=== PATIENT | female | born 1940 | race Caucasian/White ===

== ENCOUNTER → 2020-01-28 | Day surgery (SDC) | payer MEDICARE, OTHER ==
[~2020-01-28] MED LIST: Meperidine PF 25 MG/ML SDV ONE; Midazolam 1 MG/ML 2 ML SDV ONE
[2020-01-28] MEDS: Lactated Ringers 1,000 ML IV SCH (09:00)
[2020-01-28] MEDS: Benzocaine 20% Topical Spray UD MUCMEM ONE (09:14)
[2020-01-28] MEDS: Meperidine PF 25 MG/ML SDV IV ONE (09:18)
[2020-01-28] MEDS: Midazolam 1 MG/ML 2 ML SDV IV ONE (09:18)
[2020-01-28 10:16] VITALS: BP 120/67; PULSE 65
--- NOTE | 2020-01-28 12:30 | OR ---
DATE OF OPERATION: 01/28/2020 PREOPERATIVE DIAGNOSIS: EPIGASTRIC PAIN. POSTOPERATIVE DIAGNOSIS: PEPTIC ULCER DISEASE. SURGEON: Harman Ward MD PROCEDURE: DIAGNOSTIC EGD WITH BIOPSIES X3, LYNDSEY. ANESTHESIA: Conscious sedation with continuous O2 saturation monitoring and nurse assist. Oxygen saturations maintained above 90% for the whole procedure. COMPLICATIONS: None. SPECIMEN: 1. Antral LYNDSEY. 2. Antral biopsy x3. FINDINGS: 1. Full-length diagnostic EGD. 2. Peptic ulcer disease with multiple distal antral ulcers with no active bleeding. 3. Chronic gastritis in antrum. RECOMMENDATIONS: The patient will continue on proton pump therapy. Treatment of H. pylori pending report. INDICATIONS: The patient has been having some ongoing issues with epigastric pain. We put her on proton pump therapy empirically and she was failing to improve. We elected to proceed with endoscopy. DESCRIPTION OF PROCEDURE: The patient was prepped and draped, placed in the left lateral decubitus position. A lubricated Olympus gastroscope was inserted and with ease advanced to the cricopharyngeus area. The patient intubated in the esophagus. Esophageal lining was benign in its entire course. The Z-line was crisp and sharp at 39 cm. No spontaneous reflux seen. The Z- line was crisp and sharp and there was no distal esophagitis, ulceration, or Elizalde's changes. The scope was advanced into the stomach, through the pylorus, and into the second portion of the duodenum. This and the duodenal bulb were benign. The scope was brought back into the stomach and retroflexed. The upper fundus and cardia were unremarkable. The patient had significant chronic gastritis of the antrum. In the peripyloric region and in the distal antrum, the patient had multiple erosions and ulcerations. Trench Trimmer Fine biopsies of 3 of these were done along with a CLOtest from an unaffected portion of the antrum. Air was then suctioned from the stomach and the scope removed without complication. EKTA/AN /[id number]
== END ==
LOC: CC.SDS 08:24
PROVIDERS: ATTEND Family Medicine
DX: K29.50 Unspecified chronic gastritis without bleeding (principal); K31.89 Other diseases of stomach and duodenum; K27.9 Peptic ulcer, site unspecified, unspecified as acute or chronic, without hemorrhage or perforation; K44.9 Diaphragmatic hernia without obstruction or gangrene; E78.5 Hyperlipidemia, unspecified; I10 Essential (primary) hypertension; E03.9 Hypothyroidism, unspecified; Z88.8 Allergy status to other drugs, medicaments and biological substances; Z91.012 Allergy to eggs; Z79.82 Long term (current) use of aspirin; Z79.899 Other long term (current) drug therapy; Z79.890 Hormone replacement therapy; Z86.73 Personal history of transient ischemic attack (TIA), and cerebral infarction without residual deficits; Z98.890 Other specified postprocedural states; Z87.891 Personal history of nicotine dependence
CPT/HCPCS: 87081; 88305; A9270-GY; J2175; J2250; J7120

== ENCOUNTER 2021-02-07 09:42 | Emergency (ER) | payer MEDICARE, OTHER ==
[2021-02-07 09:55] VITALS: BP 158/62; PULSE 74
--- NOTE | 2021-02-07 10:40 | EDM.PDOC ---
ED HPI GENERAL MEDICAL PROBLEM - General Chief Complaint: General Stated Complaint: CP Time Seen by Provider: 02/07/21 09:51 Source of Information: Reports: Patient History Limitations: Reports: No Limitations - History of Present Illness INITIAL COMMENTS - FREE TEXT/NARRATIVE: Mrs. Gallegos is an 80-year-old female that presented to the emergency department from the clinic for evaluation of chest pain and shortness of breath. Upon arrival in ER patient denies any chest pain but has had shortness of breath since last night. States that she just cannot catch her breath. Also reports that she has had some pain in her neck that radiated up to her head described as a congested feeling. Reports that she has had some breathing issues over the last several months and states that she snores. Reports generally being fairly healthy. As mentioned she denies any sort of chest pain, nausea, vomiting, diaphoresis. Has had swelling in her lower extremities but states that is im proved this morning. Has had the Covid vaccine as well as the influenza vaccine. Onset: Gradual Duration: Day(s): (1) Location: Reports: Face, Neck Quality: Reports: Ache Severity: Mild Improves with: Reports: None Worsens with: Reports: None Chest Pain Score (Numeric/FACES): 0 - Related Data Allergies Allergy/AdvReac Type Severity Reaction Status Date / Time amlodipine besylate Allergy Unknown Edema Verified 02/07/21 09:55 [From [facility]] Eggs Allergy Airway Uncoded 02/07/21 09:55 Tightness Home Meds: Home Meds Aspirin [Halfprin] 81 mg PO DAILY 09/16/13 [History] Furosemide 40 mg PO DAILY 09/16/13 [History] Levothyroxine Sodium [Synthroid] 75 mcg PO DAILY 09/16/13 [History] Metoprolol Succinate [Toprol XL 50mg] 50 mg PO DAILY 09/16/13 [History] Quinapril [Accupril] 40 mg PO DAILY 09/16/13 [History] Rosuvastatin Calcium 20 mg PO DAILY 01/25/20 [History] Nitrofurantoin Monohyd/M-Cryst [Macrobid 100 mg Capsule] 100 mg PO BID #14 capsule 02/07/21 [Rx] Social & Family History - Tobacco Use Tobacco Use Status *Q: Never Tobacco User ED ROS GENERAL - Review of Systems Review Of Systems: See Below Constitutional: Denies: Fever, Chills Respiratory: Reports: Shortness of Breath. Denies: Wheezing, Cough Cardiovascular: Reports: Dyspnea on Exertion, Edema. Denies: Chest Pain Endocrine: Reports: Fatigue, Other (weakness) GI/Abdominal: Denies: Abdominal Pain : Reports: Dysuria Musculoskeletal: Reports: Muscle Stiffness Skin: Denies: Cyanosis, Diaphoresis Neurological: Reports: Headache. Denies: Confusion, Dizziness, Trouble Speaking Psychiatric: Reports: No Symptoms Hematologic/Lymphatic: Reports: No Symptoms Immunologic: Reports: No Symptoms ED EXAM, GENERAL - Physical Exam Exam: See Below Exam Limited By: No Limitations General Appearance: Alert, WD/WN, Mild Distress Eye Exam: Bilateral Eye: PERRL Ears: Normal External Exam, Hearing Grossly Normal Nose: Normal Inspection, Normal Mucosa, No Blood Throat/Mouth: Normal Inspection, Normal Lips, Normal Voice, No Airway Compromise Head: Atraumatic, Normocephalic Neck: Normal Inspection, Supple, Non-Tender, Full Range of Motion Respiratory/Chest: No Respiratory Distress, Lungs Clear. No: Crackles, Rales, Rhonchi, Pleural Rub Cardiovascular: Normal Peripheral Pulses, Regular Rate, Rhythm, No Gallop, No Murmur, No Rub GI/Abdominal: Normal Bowel Sounds, Soft, Non-Tender (Female) Exam: Deferred Rectal (Female) Exam: Deferred Back Exam: Normal Inspection. No: CVA Tenderness (L), CVA Tenderness (R) Extremities: Normal Range of Motion, Pedal Edema (trace lower extremity edema) Neurological: Alert, Oriented, Normal Cognition, Normal Gait. No: Confused, Disoriented, Slow to Respond Psychiatric: Normal Affect, Normal Mood Skin Exam: Warm, Dry, Intact Lymphatic: No Adenopathy Course - Vital Signs Last Recorded V/S: Last Vital Signs Temp 96.7 F L 02/07/21 09:51 Pulse 74 02/07/21 09:51 Resp 16 02/07/21 09:51 BP 158/62 H 02/07/21 09:51 Pulse Ox 94 L 02/07/21 09:51 - Orders/Labs/Meds Orders: Active Orders 24 hr Category Date Time Status Chest 2V [CR] Stat Exams 02/07/21 10:29 Taken Chest PE [Ang Chest] [CT] Stat Exams 02/07/21 10:58 Taken CULTURE URINE [RM] Stat Lab 02/07/21 12:31 Received Sodium Chloride 0.9% [Normal Saline] 500 ml Med 02/07/21 11:15 Active IV .BOLUS Medication Orders Sodium Chloride (Normal Saline) 500 mls @ 999 mls/hr IV .BOLUS GABRIELLA Last Admin: 02/07/21 11:49 Dose: 999 mls/hr Documented by: EYAD Labs: Laboratory Tests 02/07/21 02/07/21 02/07/21 Range/Units 10:20 10:20 10:20 WBC 6.8 (4.0-11.0) 10^3/uL RBC 4.57 (4.00-5.50) x10^6/uL Hgb 13.7 (12.0-16.0) g/dL Hct 42.6 (37.0-47.0) % MCV 93.2 (83.0-97.0) fL MCH 30.0 (27.0-32.0) pg MCHC 32.2 (32.0-36.0) g/dL RDW Coeff of [place] 13.6 (11.0-15.0) % Plt Count 183 (150-400) 10^3/uL Immature Gran % (Auto) 0.1 (0.0-4.9) % Neut % (Auto) 59.4 (41-71) % Lymph % (Auto) 27.6 (24-44) % [place] % (Auto) 8.5 (0-10) % Eos % (Auto) 3.2 (0-6) % Baso % (Auto) 1.2 H (0-1) % Neut # (Auto) 4.06 (1.80-8.00) x10^3/uL Lymph # (Auto) 1.89 (0.60-5.00) 10^3/uL [place] # (Auto) 0.58 (0.00-1.50) 10^3/uL Eos # (Auto) 0.22 (0.00-1.50) 10^3/uL Baso # (Auto) 0.08 (0.00-0.50) 10^3/uL Immature Gran # (Auto) 0.01 (0.00-0.49) 10^3/uL D-Dimer, Quantitative 1.39 H (0.00-0.50) Sodium 145 (136-145) mEq/L Potassium 4.2 (3.5-5.0) mEq/L Chloride 109 H (98-106) mEq/L Carbon Dioxide 25 (21-32) mmol/L BUN 15 (7-18) mg/dL Creatinine 1.8 H (0.6-1.0) mg/dL Est Cr Clr Drug Dosing 17.90 mL/min Estimated GFR (MDRD) 27 L (>=60) mL/min Glucose 115 H (75-99) mg/dL Calcium 9.8 (8.4-10.1) mg/dL Total Bilirubin 0.6 (0.0-1.0) mg/dL AST 40 H (15-37) U/L ALT 37 (12-78) U/L Alkaline Phosphatase 58 (46-116) U/L Troponin I High Sens 7.7 (<=51) pg/mL C-Reactive Protein < 0.2 L (0.2-0.8) mg/dL NT-Pro-B Natriuret Pep 243 (0-1000) pg/mL Total Protein 7.5 (6.4-8.2) g/dL Albumin 3.5 (3.4-5.0) g/dL Urine Color (YELLOW) Urine Appearance (CLEAR) Urine pH (4.5-8.0) Ur Specific [place] (1.003-1.020) Urine Protein (NEGATIVE) mg/dL Urine Glucose (UA) (NEGATIVE) mg/dL Urine Ketones (NEGATIVE) mg/dL Urine Occult Blood (NEGATIVE) Urine Nitrite (NEGATIVE) Urine Bilirubin (NEGATIVE) Urine Urobilinogen (0.2-1.0) EU/dL Ur Leukocyte Esterase (NEGATIVE) Urine RBC (0-5) /HPF Urine WBC (0-5) /HPF Ur Squamous Epith Cells (NOT SEEN) /HPF Urine Bacteria (NOT SEEN) /HPF Urinalysis Comment Influenza Type A RNA (NEGATIVE) Influenza Type B RNA (NEGATIVE) SARS-CoV-2 RNA ([place]) (NEGATIVE) 02/07/21 02/07/21 Range/Units 10:20 12:31 WBC (4.0-11.0) 10^3/uL RBC (4.00-5.50) x10^6/uL Hgb (12.0-16.0) g/dL Hct (37.0-47.0) % MCV (83.0-97.0) fL MCH (27.0-32.0) pg MCHC (32.0-36.0) g/dL RDW Coeff of [place] (11.0-15.0) % Plt Count (150-400) 10^3/uL Immature Gran % (Auto) (0.0-4.9) % Neut % (Auto) (41-71) % Lymph % (Auto) (24-44) % [place] % (Auto) (0-10) % Eos % (Auto) (0-6) % Baso % (Auto) (0-1) % Neut # (Auto) (1.80-8.00) x10^3/uL Lymph # (Auto) (0.60-5.00) 10^3/uL [place] # (Auto) (0.00-1.50) 10^3/uL Eos # (Auto) (0.00-1.50) 10^3/uL Baso # (Auto) (0.00-0.50) 10^3/uL Immature Gran # (Auto) (0.00-0.49) 10^3/uL D-Dimer, Quantitative (0.00-0.50) Sodium (136-145) mEq/L Potassium (3.5-5.0) mEq/L Chloride (98-106) mEq/L Carbon Dioxide (21-32) mmol/L BUN (7-18) mg/dL Creatinine (0.6-1.0) mg/dL Est Cr Clr Drug Dosing mL/min Estimated GFR (MDRD) (>=60) mL/min Glucose (75-99) mg/dL Calcium (8.4-10.1) mg/dL Total Bilirubin (0.0-1.0) mg/dL AST (15-37) U/L ALT (12-78) U/L Alkaline Phosphatase (46-116) U/L Troponin I High Sens (<=51) pg/mL C-Reactive Protein (0.2-0.8) mg/dL NT-Pro-B Natriuret Pep (0-1000) pg/mL Total Protein (6.4-8.2) g/dL Albumin (3.4-5.0) g/dL Urine Color Yellow (YELLOW) Urine Appearance Cloudy (CLEAR) Urine pH 7.0 (4.5-8.0) Ur Specific [place] 1.015 (1.003-1.020) Urine Protein 30 H (NEGATIVE) mg/dL Urine Glucose (UA) Negative (NEGATIVE) mg/dL Urine Ketones Negative (NEGATIVE) mg/dL Urine Occult Blood Small H (NEGATIVE) Urine Nitrite Negative (NEGATIVE) Urine Bilirubin Negative (NEGATIVE) Urine Urobilinogen 0.2 (0.2-1.0) EU/dL Ur Leukocyte Esterase Large H (NEGATIVE) Urine RBC 5-10 H (0-5) /HPF Urine WBC >100 H (0-5) /HPF Ur Squamous Epith Cells Moderate H (NOT SEEN) /HPF Urine Bacteria Few H (NOT SEEN) /HPF Urinalysis Comment Influenza Type A RNA Negative (NEGATIVE) Influenza Type B RNA Negative (NEGATIVE) SARS-CoV-2 RNA ([place]) Negative (NEGATIVE) Meds: Medications Generic Name Dose Route Start Last Admin Trade Name Freq PRN Reason Stop Dose Admin Sodium Chloride 500 mls @ 999 mls/hr 02/07/21 11:15 02/07/21 11:49 Normal Saline IV 999 mls/hr .BOLUS GABRIELLA Administration Discontinued Medications Generic Name Dose Route Start Last Admin Trade Name Freq PRN Reason Stop Dose Admin Iopamidol 100 ml 02/07/21 11:06 02/07/21 11:38 Iopamidol 755 Mg/Ml 100 Ml Bottle IVPUSH 02/07/21 11:07 74 ml ONETIME ONE Administration - Re-Assessments/Exams Free Text/Narrative Re-Assessment/Exam: This is a 80-year-old female that presented to the emergency department with increasing shortness of breath. Initially sent to the ER from clinic as she described some chest pain to the clinic providers. She has had not no chest pain in the emergency department. Labs were obtained including a CBC, CMP, CRP, D-dimer, troponin, and a UA. An EKG was obtained and no acute signs of inf arction were noted. No ST changes evident. The CBC was unremarkable. Metabolic panel showed a creatinine of 1.8, will looking into history this is comparable to creatinine since July. The D-dimer was elevated at 1.39. Troponin high-sensitivity 7. UA showed large amount of leukocyte esterase and small amount of blood. A 2 view chest x-ray was initially obtained showing no obvious acute signs of infiltrates or consolidations. Due to the D-dimer being elevated a CTA of the chest to rule out PE was completed. Radiology reports that there is no evidence of pulmonary embolism. There is 3 areas with nodules noted in the right upper lobe the pulse anterior subpleural nodule on the right lower lobe in the subpleural left lobe. All of these nodules were 3 mm and radiology recommended a follow-up noncontrast CT in 12 months as the nodules likely are benign in origin. Plan will be to discharge patient home. Patient should follow-up with her primary care provider next week to reassess kidney function. Creatinine was 1.8 here and was given a 500 cc bolus of normal saline following the CTA of the chest. With patient gradual onset of shortness of breath over the last several months that it is worsening primary care provider could consider pulmonary function test. May also consider a sleep study due to recent snoring. Patient will be prescribed Macrobid 100 mg p.o. twice daily x7 days for urinary tract infection. Patient was advised to drink plenty of fluids. Patient may call or return if symptoms are worsening. Departure - Departure Time of Disposition: 13:01 Disposition: Home, Self-Care 01 Condition: Good Clinical Impression: SOB (shortness of breath) UTI (urinary tract infection) Qualifiers: Urinary tract infection type: acute cystitis Hematuria presence: with hematuria Qualified Code(s): N30.01 - Acute cystitis with hematuria - Discharge Information *PRESCRIPTION DRUG MONITORING PROGRAM REVIEWED*: Not Applicable *COPY OF PRESCRIPTION DRUG MONITORING REPORT IN PATIENT DANIEL: Not Applicable Prescriptions: Nitrofurantoin Monohyd/M-Cryst [Macrobid 100 mg Capsule] 100 mg PO BID #14 capsule Instructions: Urinary Tract Infection, Adult Referrals: Harman Ward MD [Primary Care Provider] - Forms: ED Department Discharge Additional Instructions: 1. Take antibiotic as prescribed for urinary tract infection. 2. Drink plenty of fluids. 3. Follow-up in the clinic in 1 week before leaving out of state to recheck your kidney function. 4. Primary care provider can further direct treatment for worsening breathing concerns. Due to the gradual onset may need pulmonary function tests or sleep study. 5. Call or return if symptoms are becoming more troublesome or if any concerns. Sepsis Event Note (ED) - Evaluation Sepsis Screening Result: No Definite Risk - Focused Exam Vital Signs: Vital Signs Temp Pulse Resp BP Pulse Ox 02/07/21 09:51 96.7 F L 74 16 158/62 H 94 L - My Orders Last 24 Hours: My Active Orders 02/07/21 11:15 Sodium Chloride 0.9% [Normal Saline] 500 ml IV .BOLUS 02/07/21 12:31 CULTURE URINE [RM] Stat - Assessment/Plan Last 24 Hours: My Active Orders 02/07/21 11:15 Sodium Chloride 0.9% [Normal Saline] 500 ml IV .BOLUS 02/07/21 12:31 CULTURE URINE [RM] Stat
[2021-02-07 10:43] LABS: CHLORIDE,CL 109 mEq/L (98-106); SODIUM,NA 145 mEq/L (136-145)
[2021-02-07 10:59] LABS: CORONAVIRUS COVID-19 NAA NEGATIVE (NEGATIVE)
[2021-02-07] MEDS ORDERED: Iopamidol 755 Mg/ML 100 ML Bottle IVPUSH ONE (11:06)
[2021-02-07] MEDS ORDERED: Sodium Chloride 0.9% 500 ML IV SCH (11:15)
== END 2021-02-07 13:12 | disposition home or self-care (01) ==
LOC: CC.ED 09:42
DX: R06.02 Shortness of breath (principal); N30.01 Acute cystitis with hematuria; Z88.8 Allergy status to other drugs, medicaments and biological substances; Z91.012 Allergy to eggs; Z79.82 Long term (current) use of aspirin; Z79.899 Other long term (current) drug therapy; Z20.822 Contact with and (suspected) exposure to COVID-19
CPT/HCPCS: 0240U; 36415; 71046; 71275; 80053; 81001; 83880; 84484; 85025; 85379; 86140; 87086; 87088; 87186; 93005; 99285-25; J7040; Q9967